=== PATIENT | male | born 1960 | race Two or more races ===

== ENCOUNTER 2021-01-08 15:54 | Emergency (ER) | payer OTHER ==
[~2021-01-08] VITALS: Ht 177.8 cm; Wt 96.7 kg
--- NOTE | 2021-01-08 16:46 | NUR ---
TO DAISY FROM LOBBY
--- NOTE | 2021-01-08 17:12 | NUR ---
PT STATES AROUND 1530 TODAY LIFTING PALLET AT WORK AND FELT A STRAIN WITH PAIN 5/10, SWELLING FOLLOWED. NO MEDICATION TAKEN PRIOR TO HOSPITAL.
[2021-01-08 17:17] VITALS: BP 146/88
[2021-01-08] MEDS ORDERED: ACETAMINOPHEN 325 MG TABLET PO ONE (18:00)
[2021-01-08] MEDS ORDERED: ACETAMINOPHEN 325 MG TABLET ONE (18:01)
== END 2021-01-08 18:17 | disposition home or self-care (01) ==
LOC: ED 17:05
DX: S63.521A Sprain of radiocarpal joint of right wrist, initial encounter (principal); X50.1XXA Overexertion from prolonged static or awkward postures, initial encounter; Y93.89 Activity, other specified; Y92.69 Other specified industrial and construction area as the place of occurrence of the external cause; Y99.8 Other external cause status
CPT/HCPCS: 29125; 99283